=== PATIENT | male | born 1940 | race Caucasian/White ===

== ENCOUNTER 2018-09-25 12:45 | Inpatient (IN) ==
[2018-09-25 15:22] VITALS: BP 109/69
[2018-09-25] MEDS ORDERED: Atropine Sulfate 1% 40 DROP/2 ML BOTTLE SL PRN (15:28)
[2018-09-25] MEDS ORDERED: *HR* LORazepam 2 MG/ML VIAL IVP PRN (15:28)
[2018-09-25] MEDS ORDERED: Scopolamine Patch 1.5 MG PATCH.TD72 TD SCH (15:30)
[2018-09-25] MEDS ORDERED: Acetaminophen 650 MG RECTAL SUPP RC PRN (15:32)
--- NOTE | 2018-09-25 15:45 | Pallative History & Physical ---
Date of Encounter: 09/25/18 Time of Encounter: 15:37 Assessment and Plan (1) Dyspnea Current visit: No Status: Acute As per family, pt wishes for no use of any means that may result in prolonging the dying process. -will discontinue Oxymask -transition pt to ak 2L for comfort -Roxanol 5 mg SL for dyspnea -Scopolamine patch -Atropine prn Qualifiers: Dyspnea type: acute respiratory distress Qualified Code(s): R06.03 - Acute respiratory distress (2) Goals of care, counseling/discussion Current visit: No Status: Acute Met with pt's son Ant. He would like to avoid all measures that may prolong the dying process, including Oxymask. Discussed that pt will be DNRCC. Explained that prognosis is hours to days. Pt is not expected to survive current admission, but if he stabilizes, will need to discuss with the family about returning back to [place]. (3) Hospice care Current visit: No Status: Acute Patient is admitted to hospice with hospice diagnosis of end-stage Parkinson disease. - dyspnea: Morphine SL 5 mg q 2hrs prn, discontinue oxygen via oxymask - secretions: atropine prn, scopolamine patch - fever: tylenol 650mg q4hrs prn - Anxiety: Ativan 1mg IV q2hrs prn (4) Parkinson disease Current visit: No Status: Chronic (5) Aspiration pneumonia Current visit: No Status: Acute All antibiotics discontinued Qualifiers: Aspiration pneumonia type: unspecified Laterality: unspecified laterality Lung location: unspecified part of lung Qualified Code(s): J69.0 - Pneumonitis due to inhalation of food and vomit (6) AICD (automatic cardioverter/defibrillator) present Current visit: Yes Status: Acute Magnet placed by nurse for deactivation. Internal Medicine - H&P: HPI Admitted From: Intrahospital Transfer Plans for Post Hospital Care: at Medical Facility History of present illness: Mr. Haddad is a 78 year old male with PMH of Parkinson's disease, dementia, hypertension, chronic dysphasia presented to [place] ICU from [facility] with complaint of hypoxia. Pt was admitted at first to ICU, s/p bronchoscopy, NPO for aspiration. Patient was treated for aspiration pneumonia, but failed to improve significantly. Family at first agreed for NGT feeding and meds with the hope to improve his mental status. Unfortunately, mental status continued to deteriorate, and pt continued to requeire high levels of oxygen through Oxymask. After further discussions, Pt's sons Ant (FAYE) and Armando decided for comfort care only. Patient now transferred to hospice [facility] for dyspnea management and end of life care. At the time of exam, pt was lethargic, not opening eyes or following commands. He appeared dyspneic, with audible rhonchi and wheezes. He did not appear in acute pain. O2 sat was 90% on 10L Oxymask. Past Med Surg Social Fam HX - Past Medical History Medical history: dementia, hyperlipidemia, hypertension, other Additional medical history: dysphagia, parkinsons Psychiatric history: other - Past Surgical History Surgical History: pacemaker/AICD Additional surgical history: Poor Historian - Social History Smoking Status: Never smoker Smokeless Tobacco Status: No Alcohol use: none Drug use: none Internal Medicine - H&P: Meds Atropine 1% Opth Drops 4 drop SL Q4HR PRN bottle 09/25/18 [Rx] LORazepam [Ativan] 1 mg IVP Q2HR PRN vial 09/25/18 [Rx] MORPHINE SUL Oral CONC [Roxanol Oral Conc] 5 mg SL Q2HR PRN oral.syg 09/25/18 [Rx] Allergy/AdvReac Type Severity Reaction Status Date / Time simvastatin Allergy Mild Muscle Pain Verified 09/20/18 15:26 amlodipine Allergy See Verified 09/20/18 15:26 Comments atorvastatin [From Lipitor] Allergy See Verified 09/20/18 15:26 Comments lovastatin Allergy See Verified 09/20/18 15:26 Comments ROS unobtainable: due to mental status Palliative Care-Exam - Constitutional Vitals: Temp Pulse Resp BP Pulse Ox 99.1 F 75 17 109/69 90 09/25/18 15:21 09/25/18 15:21 09/25/18 15:21 09/25/18 15:21 09/25/18 15:21 Exam: General: In no acute distress. Non verbal, NGT in place Respiratory exam: b/l rhonchi. Rt more than left. transmitted secretory sounds. tachypneic Cardiovascular exam: RRR, +S1, +S2. no murmur, gallop, rubs. GI/Abdominal exam: Non-tender, Non-distended, normal bowel sounds, soft, no peritoneal signs. Extremities exam: trace pedal edema, pulse palpable. Neurological exam: nonverbal. Pupil equal and reactive. Spasticity and hypertonia in all extremities. Skin exam: No skin rash, ulcer, purpura or ecchymosis. Palliative Quality Palliative Quality: Screen for Code Status: Yes, Screen for Goals of Care: Yes, Screen for Pain: Yes, If Pain Regimen Started, Initiate Bowel Regimen: Yes, Screen for Nausea/Vomitting: NA Code Status: 09/25/18 15:28 Resuscitation Status: Active [RES] Routine Comment: Resuscitation Status: DNR-Comfort Care
[2018-09-25] MEDS ORDERED: Atropine 1% Opth Drops 100 DROP/5 ML BOTTLE SL PRN (16:15)
[2018-09-25] MEDS: MORPHINE SUL Oral CONC 10 MG/0.5 ML ORAL.SYG PO PRN ×2 (17:08→19:38)
--- NOTE | 2018-09-26 09:55 | Death Note ---
Discharge Sum: Summary - Date and Time Date of admission: 09/25/18 15:03 Date of : 09/25/18 Time of : 19:55 - Summary Details: Patient came to [place] as a transfer from [facility] related to aspiration pneumonia with complaints of hypoxia. PMH: Parkinson's diease, dementia, HTN, Chronic dysphagia. Patient had bronchoscopy procedure and made NPO, Speech evaluated patient and patient failing swallow evaluations. Family desired every attempt be made, including short term feeding tube, in desires of getting Parkinson's Medications in system. Patient continued to decline. Patient was transferred to [facility] hospice on 09/25/18; management of dyspnea and EOL care. Patient 09/25/18. . - Additional Data Confirmation of as documented by pronouncing clinician: no pulse, no respirations, no heart sounds, pupils fixed and dilated Attending/PCP notified?: Yes Attending physician: Vanessa Cintron MD Was code activated?: No Autopsy requested?: No garment alteration examiner notified?: No Organ bank notified?: No Advance directives: Yes Hospice patient?: Yes Discharge Sum: Diag - PCOD Probable Cause of : Respiratory arrest Discharge Sum: Prov - Provider Primary care physician: PCP NONE Admitting clinician: Vanessa Cintron Attending physician on admission: Vanessa Cintron Consults: 09/25/18 15:28 Consult to Palliative Care [CONS] Routine Comment: Consulting Provider: Palliative Care Lyla Reason for Consult: hospice Call Completed: Yes
== END 2018-09-25 22:02 | disposition expired | DRG 951 ==
LOC: 2ANU 15:03
PROVIDERS: ADMIT Internal Medicine Hospice and Palliative Medicine; ATTEND Internal Medicine Hospice and Palliative Medicine